=== PATIENT | male | born 1975 | race Caucasian/White ===

== ENCOUNTER 2024-08-11 10:33 | Emergency (ER) | payer OTHER, SELFPAY ==
--- NOTE | ~2024-08-11 | XR_ITS ---
EXAMINATION: XR ANKLE, LEFT CLINICAL INFORMATION: Pain in ankle due to fall. COMPARISON: None available. TECHNIQUE: AP, lateral, and mortise views of the left ankle. FINDINGS: No acute fracture or dislocation. The ankle mortise is maintained. Corticated ossification adjacent to the medial malleolus measuring up to 0.5 cm, consistent with a remote, unfused avulsion fracture. Lateral soft tissue swelling. Small ankle joint effusion. No joint space narrowing or marginal osteophytes. No concerning lytic or blastic osseous lesion. XR/XR ankle LT min 3V IMPRESSION: 1. Lateral soft tissue swelling and small joint effusion. No acute fracture or dislocation. 2. Remote, unfused avulsion fracture at the medial malleolus. Electronically signed by: Nilesh Gavin MD 08/11/2024 02:07 PM EDT
[2024-08-11 10:45] VITALS: BP 152/85; PULSE 83; RESP 16; TEMP 36.4; O2SAT 96; BMI 35.3
--- NOTE | 2024-08-11 12:28 | ED_ITS ---
HPI - General Adult General Chief complaint: Extremity Injury, Lower Stated complaint: Fall - ankle injury Time Seen by Provider: 08/11/24 12:34 Source: patient Mode of arrival: wheelchair Limitations: no limitations History of Present Illness ED Provider: Elise Harris PA-C HPI narrative: Patient is a 49 year old assigned male at with no reported medical history presenting to the emergency department today with left ankle pain. Patient states that he rolled his left ankle earlier today. Patient denies any dizziness, lightheadedness, abdominal pain, nausea, vomiting, fever, chills, blurry vision, double vision, loss of vision, chest pain, difficulty breathing, shortness of breath, back pain, night sweats, pain with urination, increased urinary frequency, increased urinary urgency, blood in his urine or stool, syncope or a near syncopal episode, bowel incontinence, bladder incontinence, or any other complaints at this time. Location: left and lower extremity Relieving factors: none Exacerbating factors: none Associated symptoms: denies other symptoms Treatments prior to arrival: none Related Data Allergies Allergy/AdvReac Type Severity Reaction Status Date / Time No Known Allergies Allergy Verified 08/11/24 10:47 Review of Systems Constitutional: Constitutional: Reports no additional constitutional complaints, Denies chills, Denies fever(s) and Denies night sweats Eyes: Eyes: Reports no additional eye complaints, Denies blurry vision, Denies change in vision, Denies diplopia, Denies eye discharge, Denies loss of vision and Denies eye pain ENT: Denies dizziness Cardiovascular: Cardiovascular: Reports no additional cardiovascular complaints, Denies chest pain, Denies lightheadedness, Denies Loss of Consciousness and Denies dyspnea Respiratory: Respiratory: Reports no additional respiratory complaints and Denies dyspnea Gastrointestinal: Gastrointestinal: Reports no additional gastrointestinal complaints, Denies abdominal pain, Denies melena, Denies hematochezia, Denies change in bowel habits and Denies change in stool character Genitourinary: Genitourinary: Reports no additional male genitourinary complaints, Denies hematuria, Denies oliguria, Denies difficulty urinating, Denies dysuria, Denies urinary frequency, Denies urinary hesitancy, Denies urinary incontinence and Denies urinary urgency Musculoskeletal: Musculoskeletal: Reports no additional musculoskeletal complaints, Denies numbness and Denies tingling Comments: left ankle pain Neurologic: Denies dizziness, Denies loss of vision, Denies numbness and Denies tingling Psychiatric: Psychiatric: Reports no additional psychiatric complaints Endocrine: Endocrine: Reports no additional endocrine complaints Hematologic/Lymphatic: Hematologic/Lymphatic: Reports no additional hematologic/lymphatic complaints Allergic/Immunologic: Allergic/Immunologic: Reports no additional allergic/immunologic complaints COUNTS INCLUDE 234 BEDS AT THE [facility] Past Medical History Attestation statement: The following information was validated with the patient. Source: old records reviewed and nursing notes reviewed Social History Social History Advance Directives: No Advance Directives Information Provided: Yes Do you have a plan to hurt others: No Plan Physical Exam ED Vital Signs: Vital Signs - 24 hr 08/11/24 10:45 08/11/24 12:29 08/11/24 12:36 Temperature 97.5 F 98.7 F 98.7 F Pulse Rate 83 82 82 Respiratory Rate 16 16 16 Blood Pressure 152/85 H 168/86 H 168/86 H Pulse Oximetry 96 97 97 Oxygen Delivery Method Room Air Room Air BMI result Body Mass Index 35.3 Const General: cooperative, no acute distress, alert and awake Nutritional Appearance: well nourished Orientation/consciousness: patient oriented x3 Limitations: no limitations HENMT Head: Yes normal to inspection and Yes atraumatic Ears: hearing grossly normal bilaterally and external ears normal General nose exam: Normal external nose present, no nasal discharge noted and no epistaxis Face and sinus: Yes normal facial exam, No abrasion and No laceration Mouth: Normal oral and palatal mucosa present, no drooling and no muffled voice Eyes General: appearance normal, both eyes and all related structures Periorbital: periorbital findings normal Eyelids: Yes eyelids normal Conjunctivae: conjunctivae normal Pupils: Equal, round and reactive pupils present EOM: EOMs intact bilaterally Neck Neck: Yes normal visual inspection, Yes full ROM and Yes no lymphadenopathy Chest Chest palpation & inspection: normal inspection of the chest Resp Effort & Inspection: normal respiratory effort and able to speak in complete sentences GI Inspection: Yes normal to inspection Neuro General: patient oriented x3 and moves all extremities Cranial nerves: Yes Equal, round and reactive pupils present Cognition (Neuro): normal cognition Extrem Other: left ankle pain left ankle swelling General: Yes full ROM and Yes capillary refill normal Psych Appearance: grossly normal Mental Status: mental status grossly normal Affect: normal affect Attitude: cooperative Thought process: Normal thought process present Thought content: Normal thought content present Insight: Good insight present (Psych) Procedures Orthopedic Splinting/Casting Injury #1: Side: left Lower Extremity Injury Location: ankle Lower Extremity Immobilizer: knee immobilizer Other Orthopedic Equipment: crutches Medical Decision Making Medical Decision Making MDM Narrative: Patient is a 49 year old assigned male at with no reported medical history presenting to the emergency department today with left ankle pain. Patient's physical exam was as noted in the physical exam portion of this note. Patient's left ankle x-ray showed an acute fracture of the tibia. I explained my physical exam findings as well as all test results to the patient. I answered all questions asked by the patient. Patient's left ankle was placed in a walking boot and the patient given crutches. I stressed the importance of the patient taking his medication as directed (either prescribed or as the over the counter packaging recommends). I stressed the importance of the patient following up with his primary care provider and an orthopedic provider. I stressed the importance of the patient returning to the emergency department immediately if his symptoms were to worsen or if he were to develop any dizziness, shortness of breath, difficulty breathing, chest pain, blurry vision, loss of vision, nausea, vomiting, abdominal pain, fever, chills, back pain, or any other complaints. Patient verbalized agreement and understanding with this treatment plan and discharge. Differential Diagnosis Differential Diagnoses: The differential diagnosis associated with the presentation includes Left ankle sprain Left ankle strain Left ankle fracture Admission/Observation Consideration of admission/observation: Escalation of care including admission/observation considered Patient would have been admitted to the hospital had his work up had any findings where hospital admission was appropriate and his clinical presentation warranted hospital admission. Independent Interpretation I performed an independent interpretation of an: Plain X-Ray Interpretation: My interpretation is the avulsion fracture seen on the XR is new. Below is the radiologist's impression of this imaging study. EXAMINATION: XR ANKLE, LEFT CLINICAL INFORMATION: Pain in ankle due to fall. COMPARISON: None available. TECHNIQUE: AP, lateral, and mortise views of the left ankle. FINDINGS: No acute fracture or dislocation. The ankle mortise is maintained. Corticated ossification adjacent to the medial malleolus measuring up to 0.5 cm, consistent with a remote, unfused avulsion fracture. Lateral soft tissue swelling. Small ankle joint effusion. No joint space narrowing or marginal osteophytes. No concerning lytic or blastic osseous lesion. XR/XR ankle LT min 3V IMPRESSION: 1. Lateral soft tissue swelling and small joint effusion. No acute fracture or dislocation. 2. Remote, unfused avulsion fracture at the medial malleolus. Electronically signed by: Nilesh Gavin MD 08/11/2024 02:07 PM EDT RP Dictated By: Nilesh Gavin MD Signed By: Electronically signed by Nilesh Gavin MD 08/11/24 1256 Radiology Impression Discussion of test interpretation with radiology: I have reviewed the radiologist's reading. Discharge Plan Discharge Clinical Impression: Ankle fracture Patient Disposition: Home, Self-Care Instructions: Ankle Fracture (DC), Crutch Instructions (ED) Additional Instructions: Follow up with your primary care provider and an orthopedic provider. Return to the emergency department immediately if your symptoms worsen or if you develop any dizziness, shortness of breath, difficulty breathing, chest pain, blurry vision, loss of vision, nausea, vomiting, abdominal pain, fever, chills, back pain, or any other complaints. Referrals: [facility] [place] Family Medicine [Provider Group] (Call to establish and follow up with a primary care provider. If you already have a primary care provider, please follow up with them.) [facility] [place] Primary CareKaelyn [Provider Group] (Call to establish and follow up with a primary care provider. If you already have a primary care provider, please follow up with them.) [facility] [place] Primary CareJose [Provider Group] (Call to establish and follow up with a primary care provider. If you already have a primary care provider, please follow up with them.) [facility] [place] Orthopedic Surgeons [Provider Group] (Call to establish and follow up with an orthopedic provider. ) Stand Alone Forms: Work/School Release Interventions: ED Discharge Assessment Last Done: 08/11/24 12:36 Discharge Date/Time: 08/11/24 13:12 Print Language: [place]
[2024-08-11 12:29] VITALS: BP 168/86; PULSE 82; RESP 16; TEMP 37.1; O2SAT 97
[2024-08-11 12:36] VITALS: BP 168/86; PULSE 82; RESP 16; TEMP 37.1; O2SAT 97
== END 2024-08-11 13:12 | disposition home or self-care (01) ==
LOC: HO.ED 12:40
PROVIDERS: Emergency Provider Emergency Medicine
DX: S82.892A Other fracture of left lower leg, initial encounter for closed fracture (principal); W19.XXXA Unspecified fall, initial encounter; Y93.9 Activity, unspecified; Y92.9 Unspecified place or not applicable; Y99.9 Unspecified external cause status; M25.572 Pain in left ankle and joints of left foot
CPT/HCPCS: 73610; 99283

== ENCOUNTER 2024-08-22 08:44 | Outpatient (AMB) | payer OTHER, SELFPAY ==
[2024-08-22 08:46] VITALS: BP 130/86; PULSE 78; O2SAT 93; BMI 35.3
--- NOTE | 2024-08-22 08:46 | A.OFFPC_ITS ---
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: No Allergies No Known Allergies Allergy (Verified 08/22/24 09:03) Medication List - Last Reconciled 08/22/24 by Cherise Lo PA-C atorvastatin mg PO pantoprazole 40 mg PO BID sertraline 100 mg PO DAILY Tobacco use date assessed: 08/22/24 Dental Screening Dental Screen Date: 08/22/24 Did you have a dental visit in the last 12 months?: Yes Did you have a dental problem in the last 6 months where you did not have access to dental care?: No Was dental information given to patient?: Patient has dentist HPI establish care HPI Details 49 year old male with no past medical hi story coming to the office for the first time. In review of the notes, patient was seen in [facility] ED 08/11/2024 with left ankle pain after rolling his ankle. Ankle Xr showed acute fracture of the tibia patient was placed in a walking boot and given crutches and advised to follow up with orthopedics. Patient states he is feeling generally well. [facility] He has had annual exam this year and is up-to-date on all routine screenings and vaccinations for his age. He denies any ankle pain or swelling and would like to return to work. [facility] Social History Housing: House Patient Tobacco Use Status: Never used Tobacco service: Yes Current occupational status: employed Cognitive needs: No Hearing needs: No Vision needs: No Questionnaire PHQ-9 Over the last 2 weeks, how often have you been bothered by any of the following problems? 1. Little interest or pleasure in doing things: not at all 2. Feeling down, depressed, or hopeless: not at all 3. Trouble falling or staying asleep, or sleeping too much: not at all 4. Feeling tired or having little energy: not at all 5. Poor appetite or overeating: not at all 6. Feeling bad about yourself - or that you are a failure or have let yourself or your family down: not at all 7. Trouble concentrating on things, such as reading the newspaper or watching television: not at all 8. Moving or speaking so slowly that other people could have noticed. Or the opposite - being so fidgety or restless that you have been moving around a lot more than usual: not at all 9. Thoughts that you would be better off or of hurting yourself in some way : not at all Total score: 0 46385 - PHQ-9 Billing: Yes Source: Developed by Drs. Rishabh Gambino, Anjali Rouse, Diallo Smith and colleagues, with an educational sarah from [employer]. Thrive Questionnaire Date Thrive assessed: 08/22/24 I am a: Patient What is your living situation today?: I choose not to answer this question Within the past 12 months, did the food you bought not last and you didn't have the money to get more?: I choose not to answer this question Within the past 12 months, did you worry whether your food would run out before you got money to buy more?: I choose not to answer this question Do you have trouble paying for medicines?: I choose not to answer this question Do you have trouble getting transportation to medical appointments?: I choose not to answer this question Do you have trouble paying your heating and electricity bill?: I choose not to answer this question Do you have trouble taking care of your child, family member or friend?: I choose not to answer this question Do you have trouble with day-to-day activities such as bathing, preparing meals, shopping, managing finances, etc.?: I choose not to answer this question Are you currently unemployed and looking for a job?: I choose not to answer this question Are you interested in more education?: I choose not to answer this question Please select the resources that you would like help with: Transportation THRIVE Score: 0 AUDIT C Alcohol Use Questionnaire (AUDIT-C) 1. How often do you have a drink containing alcohol?: Never 3. How often do you have six or more drinks on one occasion?: Never Total Score: 0 SHAN-7 AMB Questionnaire SHAN-7 Date SHAN - 7 assessed: 08/22/24 Feeling nervous, anxious, or on edge: 0 = Not at all Not being able to stop or control worryin = Not at all Worrying too much about different things: 0 = Not at all Trouble relaxin = Not at all Being so restless that it is hard to sit still: 0 = Not at all Becoming easily annoyed or irritable: 0 = Not at all Feeling afraid as if something awful might happen: 0 = Not at all Total SHAN-7 score (0-4 normal; 5-9 mild; 10-14 moderate; 15-21 severe): 0 Source: Developed by Drs. Rishabh Gambino, Anjali Rouse, Diallo Smith and colleagues, with an educational sarah from [employer]. SHAN-7 Assessment Billing SHAN-7 Assessment Tool: SHAN-7 Assessment 48705 Review of Systems Const Denies body aches, Denies fatigue, Denies fever(s), Denies frequent falls, Denies headache(s) and Denies weakness Eyes Reports no additional complaints and Denies change in vision ENT Denies dysphagia, Denies dizziness, Denies facial pain, Denies headache(s), Denies nasal congestion and Denies odynophagia Card Denies chest pain, Denies syncope, Denies irregular heart rhythm, Denies leg edema, Denies lightheadedness and Denies dyspnea Resp Denies cough and Denies dyspnea GI Denies constipation, Denies dysphagia, Denies dyspepsia, Denies diarrhea, Denies nausea, Denies odynophagia and Denies vomiting Denies dysuria, Denies urinary frequency, Denies urinary hesitancy and Denies urinary urgency Musc Denies back pain and Denies myalgias Skin/Breast Reports system reviewed and no additional complaints, except as documented Neuro Denies dizziness, Denies syncope, Denies frequent falls, Denies headache(s) and Denies weakness Psych Reports no additional complaints Endo Denies fatigue Physical exam (Primary Care) Vital Signs: Last Vital Signs Pulse 78 08/22/24 08:46 BP 130/86 08/22/24 08:46 Pulse Ox 93 08/22/24 08:46 Oxygen Delivery Method Room Air 08/22/24 08:46 BMI result Body Mass Index 35.3 Tobacco/Smoking Status: Tobacco use Status Tobacco use date assessed 08/22/24 08/22/24 08:48 Patient Tobacco Use Status Never used Tobacco 08/22/24 08:55 PHQ-9: PHQ-9 Score PHQ-9: Total score 0 08/22/24 08:55 Thrive Assessment: Date of Thrive Assessment Date Thrive assessed 08/22/24 08/22/24 08:55 Const General: cooperative, healthy appearing, comfortable and no acute distress Orientation/consciousness: patient oriented x3 HENAZ Head: Yes normocephalic Ears: hearing grossly normal bilaterally General nose exam: Normal external nose present Eyes General: appearance normal, both eyes and all related structures Conjunctivae: conjunctivae normal Neck Neck: Yes full ROM and Yes no lymphadenopathy Resp Effort & Inspection: normal respiratory effort Auscultation: clear to auscultation bilaterally, no crackles, no rales, no rhonchi and no wheezes Cardio Rate: regular rate Rhythm: regular rhythm Skin General skin exam: no rashes or lesions noted Neuro General: patient oriented x3 Gait exam (Neuro): Normal gait present Extrem Other: No tenderness to palpation of left ankle. Pulses and sensation intact in bilateral lower extremities. Mild swelling to medial aspect of left ankle without bruising General: Yes normal to inspection, Yes full ROM and No edema Psych Affect: normal affect Attitude: cooperative Insight: Good insight present (Psych) Judgement: Good judgement present (Psych) Coding Level of Care Code New Pt Level 3 (73802) Diagnoses Anxiety F41.9 Hypercholesterolemia E78.00 GERD (gastroesophageal reflux disease) K21.9 Tibia fracture S82.209A Additional Codes SHAN-7 Assessment Billing - SHAN-7 Assessment Tool: SHAN-7 Assessment 38606 ([id number]) Assessment & Plan Assessment & Plan (1) Anxiety: Code(s): F41.9 - Anxiety disorder, unspecified Category: Medical Plan: Continue on sertraline and continue to follow with mental health counselor provided by the [facility]. (2) Hypercholesterolemia: Code(s): E78.00 - Pure hypercholesterolemia, unspecified Category: Medical Plan: Avoid foods that are high in cholesterol such as red meat, fried foods, eggs and baked goods. Triglyceride goal of less than 150 and LDL goal of less than 130. Continue on atorvastatin. Patient recently had blood work through the [facility] and continue to follow with them for management of your cholesterol. (3) GERD (gastroesophageal reflux disease): Code(s): K21.9 - Gastro-esophageal reflux disease without esophagitis Category: Medical Plan: Avoid trigger foods such as citrus, tomato products, soda, caffeine, spicy foods and other foods that may be irritating to your stomach. Avoid laying flat 3-4 hours after eating and elevate the head of the bed 30 degrees to prevent acid from moving into the esophagus. Continue on pantoprazole. (4) Tibia fracture: Code(s): S82.209A - Unspecified fracture of shaft of unspecified tibia, initial encounter for closed fracture Category: Medical Plan: Discussed with patient per ER recommendations he is to be nonweightbearing until re-evaluated by orthopedics next week. Regarding return to work clearance this would be most appropriately completed by Orthopedics or PT. Discussed I can also fill out the paperwork once he has been re-evaluated by Orthopedics and recommendations have been made. Continue to use crutches and boot until you can be evaluated at your next appointment 08/28/2024. Plan This note was constructed using voice recognition software. While every effort has been made to ensure accuracy and skin pass operator, still areas may have been included sometimes these areas may affect the content or meeting of the given symptoms. Total time spent caring for the patient today was 30 minutes. This includes time spent before the visit reviewing the chart, time spent during the visit, and time spent after the visit and documentation.
== END 2024-08-22 09:29 | disposition home or self-care (01) ==
LOC: HO.HMCH 08:45
DX: F41.9 Anxiety disorder, unspecified (principal); E78.00 Pure hypercholesterolemia, unspecified; K21.9 Gastro-esophageal reflux disease without esophagitis; S82.209A Unspecified fracture of shaft of unspecified tibia, initial encounter for closed fracture

== ENCOUNTER → 2024-08-22 08:44 | Outpatient (BNVA) | payer OTHER, SELFPAY | DX: F41.9 Anxiety disorder, unspecified (principal); E78.00 Pure hypercholesterolemia, unspecified; K21.9 Gastro-esophageal reflux disease without esophagitis; S82.202D Unspecified fracture of shaft of left tibia, subsequent encounter for closed fracture with routine healing | CPT/HCPCS: 96127 ==

== ENCOUNTER 2024-08-28 10:45 | Outpatient (AMB) | payer OTHER, SELFPAY ==
--- NOTE | 2024-08-28 10:47 | A.OFFVIS_ITS ---
Intake Visit Reasons: OV - left ankle pain, DOI 08/11/24 Intake Note: Lawrence is a 49 year old male who presents today with a tall walking boot for evaluation of of his left ankle pain, DOI 08/11/24. Patient states that he rolled his left ankle when he stepped off the side walk, which lead him to fall. He states that he is not having any pain. Allergies No Known Allergies Allergy (Verified 08/28/24 10:50) HPI HPI OV - left ankle pain, DOI 08/11/24: Details: 49-year-old male who presents in the office today, as a new patient, for an evaluation of left ankle pain. The patient presented to the ED on 08/11/24 status post rolled his left ankle. X-rays of the left ankle were obtained in the ER. He was placed in a walking boot and supplied with the crutches. He was referred to [facility] [place] evaluation and treatment. While in the office today, the patient presents with a tall walking boot. He states he rolled his left ankle when he stepped off the sidewalk, causing him to fall. He denies experiencing any pain currently. 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 No ecchymosis, erythema, or edema. Stiffness with range of motion in all planes. Negative anterior drawer. Sensation intact. Pedal pulse intact. Assessment & Plan Assessment & Plan (1) Left ankle sprain: Code(s): S93.402A - Sprain of unspecified ligament of left ankle, initial encounter Category: Medical Plan Mr. Garsia is a 49-year-old male who presents in the office today, as a new patient, for an evaluation of left ankle pain. The patient presented to the ED on 08/11/24 status post rolled his left ankle. X-rays of the left ankle were obtained in the ER. He was placed in a walking boot and supplied with the crutches. He was referred to [facility] [place] further evaluation and treatment. While in the office today, the patient presents with a tall walking boot. He states he rolled his left ankle when he stepped off the sidewalk, causing him to fall. He denies experiencing any pain currently. The patient can discontinue the boot and crutches at this time. He can bear weight as tolerated. He was recommended physical therapy to work on range of motion and strengthening. Follow-up will be PRN, or sooner if needed. X-rays of the left ankle, obtained on 08/11/24, revealed: 1. Lateral soft tissue swelling and small joint effusion. No acute fracture or dislocation. 2. Remote, unfused avulsion fracture at the medial malleolus. Orders: Orders PT Evaluation and Treatment Today S93.402A - Sprain of unspecified ligament of left ankle, initial encounter Patient Instructions: Scribed by Jess Howell medical housekeeper, for Stephanie Velasquez PA-C on 08/28/24 at 11:49 am EST. Coding Level of Care Code New Pt Level 4 (47193) Diagnoses Left ankle sprain S93.402A
== END 2024-08-28 11:50 | disposition home or self-care (01) ==
LOC: HO.HOS 10:46
PROVIDERS: Visit Provider Physician Assistant
DX: S93.402A Sprain of unspecified ligament of left ankle, initial encounter (principal)
CPT/HCPCS: 99204

== ENCOUNTER → 2024-08-28 10:45 | Outpatient (BNVA) | payer OTHER, SELFPAY | PROVIDERS: Visit Provider Physician Assistant | DX: S93.402A Sprain of unspecified ligament of left ankle, initial encounter (principal); X50.1XXA Overexertion from prolonged static or awkward postures, initial encounter; Y93.01 Activity, walking, marching and hiking; Y92.480 Sidewalk as the place of occurrence of the external cause; Y99.9 Unspecified external cause status | CPT/HCPCS: 99202 ==